=== PATIENT | male | born 1980 | race Caucasian/White ===

== ENCOUNTER → 2017-08-21 | Outpatient (CLI) | payer BC ==
--- NOTE | 2017-08-21 19:14 | CT ---
EXAMINATION TYPE: CT brain wo con DATE OF EXAM: 08/21/2017 COMPARISON: NONE HISTORY: Patient complains of new onset headaches and dizziness x3 months. CT DLP: 786.4 mGycm. Automated Exposure Control for Dose Reduction was Utilized. TECHNIQUE: CT scan of the head is performed without contrast. FINDINGS: There is no acute intracranial hemorrhage, mass effect, or midline shift identified. The ventricles and sulci are within normal limits in size. Peña-white matter differentiation is maintai stella. The globes are intact and the visualized sinuses are clear. No suspicious opacification of masto id air cells is seen. IMPRESSION: No acute intracranial hemorrhage or midline shift is seen. No significant finding is see n to account for patient's symptoms.
== END ==
LOC: RADCTMAIN 18:54
PROVIDERS: ATTEND Family Medicine
DX: R51 Headache (principal)
CPT/HCPCS: 70450

== ENCOUNTER 2022-01-23 09:51 | Day surgery (SDC) | payer BC ==
[2022-01-18 14:37] VITALS: BMI 26.9
[~2022-01-23 09:51] MED LIST: LACTATED RINGERS 1,000 ML IV SCH; LIDOCAINE 1% (10MG/ML) FOR IV START INTRADERMA PRN
[2022-01-23 10:15] VITALS: RESP 16; TEMP 98
[2022-01-23] MEDS ORDERED: LIDOCAINE 1% INJ 10MG/ML (20 ML MDV) ONE (11:03)
[2022-01-23] MEDS ORDERED: PROPOFOL 10 MG/ML 20 ML VIAL IV ONE (11:03)
--- NOTE | 2022-01-23 11:08 | P.GSHP ---
History of Present Illness H&P Date: 01/23/22 Chief Complaint: Dysphagia 41-year-old male here today for upper endoscopy with possible dilation. Patient provides a 10 year history or greater of intermittent episodes of dysphagia. Says it typically will happen up to 6 times per year. Happening with more varied substances lately. He did have an EGD after he had steak caught by GI approximately 10 years ago. No weight loss. No significant heartburn. Past Medical History Past Medical History: Asthma Additional Past Medical History / Comment(s): Difficulty swallowing X10 yrs, getting worse. History of Any Multi-Drug Resistant Organisms: None Reported Additional Past Surgical History / Comment(s): Moles removed. Past Anesthesia/Blood Transfusion Reactions: No Reported Reaction Past Psychological History: No Psychological Hx Reported Smoking Status: Never smoker Past Alcohol Use History: Occasional Past Drug Use History: None Reported - Past Family History Mother Family Medical History: Cancer Additional Family Medical History / Comment(s): Brain Tumor. Medications and Allergies Home Medications Medication Instructions Recorded Confirmed Type Advair (Unknown Dose) 1 puff INHALATION BID 01/18/22 01/23/22 History Multivitamins, Thera [Multivitamin 1 tab PO DAILY 01/18/22 01/23/22 History (formulary)] Allergies Allergy/AdvReac Type Severity Reaction Status Date / Time No Known Allergies Allergy Verified 01/23/22 10:08 Surgical - Exam Vital Signs Temp Pulse Resp BP Pulse Ox 98.0 F 60 16 165/74 98 01/23/22 10:14 01/23/22 10:14 01/23/22 10:14 01/23/22 10:14 01/23/22 10:14 Physical exam: General: Well-developed, well-nourished HEENT: Normocephalic, sclerae nonicteric Abdomen: Nontender, nondistended Extremities: No edema Neuro: Alert and oriented Assessment and Plan (1) Dysphagia Narrative/Plan: Will proceed with upper endoscopy Current Visit: Yes Status: Acute Code(s): R13.10 - DYSPHAGIA, UNSPECIFIED SNOMED Code(s): 22622659
--- NOTE | 2022-01-23 11:16 | P.PCN ---
Date of Procedure: 01/23/22 Procedure(s) Performed: Preoperative Dx: Dysphagia Postoperative Dx: Mild gastritis Procedure: EGD with Bx Anesthesia: Sedation Endoscopist: Dr. Steven Specimens: Antrum Endoscopic Procedure: The patient was on the endoscopy table in the left decubitus position. The Olympus gastroscope was inserted into the oropharynx and passed under direct visualization to the region of the third portion of the duodenum. From that point the scope was slowly withdrawn inspecting all surfaces carefully. There were no neoplastic inflammatory or polypoid lesions throughout the duodenum. The pylorus was widely patent. The stomach was carefully inspected. There was mild gastritis present. A biopsy of the antrum took place to rule out H. pylori. Retroflexion revealed a normal hiatus. The esophagus was then carefully examined. There were no neoplastic inflammatory or polypoid lesions throughout the visualized esophagus. There was no visible narrowing of the esophagus. The patient was then taken to the recovery room in stable condition per anesthesia guidelines. Recommendations: Resume diet. We'll discuss options of esophageal manometry with patient to evaluate for possible achalasia.
[2022-01-23 11:39] VITALS: BP 116/73; PULSE 57
== END 2022-01-23 11:59 | disposition home or self-care (01) ==
LOC: ORWHC2ENDO 09:51
PROVIDERS: ATTEND Surgery
DX: K29.60 Other gastritis without bleeding (principal); J45.909 Unspecified asthma, uncomplicated; K29.50 Unspecified chronic gastritis without bleeding; Z79.51 Long term (current) use of inhaled steroids; Z80.8 Family history of malignant neoplasm of other organs or systems
CPT/HCPCS: 43239; 88305; J2001; J2704